=== PATIENT | male | born 1945 | race Caucasian/White ===

== ENCOUNTER → 2023-08-18 10:55 | Outpatient (REF) | payer MEDICARE, OTHER, SELFPAY | LOC: RAD 10:55 | PROVIDERS: ATTENDING PHYSICIAN Nurse Practitioner Adult Health | DX: C61 Malignant neoplasm of prostate (principal) | CPT/HCPCS: 71260; 74177; Q9967 ==

== ENCOUNTER → 2023-09-21 07:42 | Outpatient (REF) | payer MEDICARE, OTHER, SELFPAY | LOC: PAVMRI 07:42 | PROVIDERS: ATTENDING PHYSICIAN Internal Medicine Hematology & Oncology; FAMILY PHYSICIAN Nurse Practitioner Family | DX: C61 Malignant neoplasm of prostate (principal) | CPT/HCPCS: 72157; A9575 ==

== ENCOUNTER → 2023-09-27 08:27 | Outpatient (REF) | payer MEDICARE, OTHER, SELFPAY | LOC: RAD 08:27 | PROVIDERS: ATTENDING PHYSICIAN Internal Medicine Hematology & Oncology; FAMILY PHYSICIAN Nurse Practitioner Family | DX: C61 Malignant neoplasm of prostate (principal) | CPT/HCPCS: 78306; A9503 ==

== ENCOUNTER → 2024-07-12 15:22 | Outpatient (REF) | payer MEDICARE, OTHER, SELFPAY | LOC: CLAB 15:22 | PROVIDERS: ATTENDING PHYSICIAN Specialist | DX: N39.0 Urinary tract infection, site not specified (principal); R31.0 Gross hematuria | CPT/HCPCS: 87086; 88112 ==

== ENCOUNTER 2024-08-22 17:27 | Inpatient (IN) | payer MEDICARE, OTHER, SELFPAY ==
[2024-08-22] VITALS (9 sets, daily range): BP systolic 114–136; BP diastolic 66–100
[2024-08-22 14:06] LABS: % Basophils 0.6 % (0-2); % Eosinophils 1.4 % (0-6); % Immature Granulocytes 0.6 % (0-0.5); % Lymphocytes 24.9 % (20.5-51.1); % Monocytes 12.7 % (1.7-9.3); % Neutrophils 59.8 % (42.2-75.2); Absolute Eosinophils 0.1 10^3/uL (0-0.7); Absolute Lymphocytes 1.3 10^3/uL (1.2-3.4); Absolute Monocytes 0.6 10^3/uL (0.1-0.6); Hematocrit 44.2 % (39.0-52.0); Hemoglobin 14.9 g/dL (13.0-18.0); Mean Corp Hgb Conc. 33.7 g/dL (33.0-37.0); Mean Corpuscular Volume 92.1 fL (80.0-94.0); Mean Platelet Volume 11.3 fL (7.4-10.4); Nucleated Red Blood Cells % 0 % (-); Platelet Count 188 10^3/uL (130-400); Red Cell Dist. Width 13.1 % (11.5-14.5)
[2024-08-22 14:20] LABS: ALT (SGPT) 130 U/L (0-50); AST (SGOT) 91 U/L (17-59); Albumin 4.8 g/dl (3.5-5.0); Alkaline Phosphatase 137 U/L (38-126); Blood Urea Nitrogen 25 mg/dl (9-20); Calcium 9.7 mg/dl (8.4-10.2); Carbon Dioxide 26 mmol/L (22-30); Chloride 101 mmol/L (98-107); Glucose 109 mg/dl (70-99); Potassium 4.8 mmol/L (3.5-5.1); Sodium 140 mmol/L (135-145); Total Bilirubin 0.8 mg/dl (0.2-1.3); Total Protein 7.6 g/dl (6.3-8.2); eGFR > 60.00
[2024-08-22 14:48] LABS: Urine Albumin 1+ (Neg - Trace); Urine Bilirubin Negative (Negative); Urine Character Clear (Clear); Urine Color Yellow; Urine Glucose Negative (Negative); Urine Ketone Negative (Negative); Urine Leukocyte 3+ (Negative); Urine Nitrite Negative (Negative); Urine Occult Blood 2+ (Negative); Urine Specific Gravity 1.015 (<1.030); Urine Urobilinogen Negative (Neg - 1+)
[2024-08-22 15:02] LABS: Lipase 172 U/L (23-300)
[2024-08-22 15:15] LABS: Troponin I < 0.012 ng/ml
[2024-08-22 15:19] LABS: Urine Amorphous Seen; Urine Squamous Cell 0-2 /LPF (Few); Urine White Cell 40-50 /HPF (0-5)
[2024-08-22 15:20] LABS: Urine Red Blood Cell 16-20 /HPF (0-2)
--- NOTE | 2024-08-22 15:33 | ED.GENMED ---
History of Present Illness
General
Chief Complaint: Flank Pain
Source: patient
Time Seen by Provider: 08/22/24 14:21
History of Present Illness
History of Present Illness:
79-year-old male with past medical history of hypertension, hyperlipidemia, previous UT, previous prostate cancer presenting to the emergency department for evaluation of left-sided flank pain that has been ongoing for the last week, waxes and wanes
in intensity, currently 2 out of 10 described to be a dull ache but intermittently sharper in nature. Patient saw his primary care provider last week who diagnosed him with a urinary tract infection and placed the patient on an antibiotic (patient
unsure as to what antibiotic he completed) but states this did not give him any relief from his symptoms. He denies any other symptoms including fevers, chills, rigors, nausea, vomiting, bowel changes, urinary frequency/urgency, dysuria or
hematuria. He does note a history of radiation induced bleeding in the past from his prostate cancer treatments. No other concerns presently.
Past History
Past History
ED Past Medical History: Cancer, HTN, Hypercholesterolemia and UT
ED Past Surgical History: Cardiac, Tonsilectomy and Other
Social History
Tobacco: Non-smoker
Alcohol: None
Drug: None
Personal:
Living: with family
Review of Systems
Review of Systems
All Other Systems: ROS reviewed and negative except as documented in HPI and ROS
Phy Exam
Physical Exam
Physical Exam:
GENERAL: Alert , in no apparent distress
HEAD: NCAT
EYE: clear conjunctiva
NECK: Supple
ENT: o/p clr, mmm.
CARDIAC: Regular rate and rhythm .
LUNGS: Clear breath sounds bilaterally, no acute respiratory distress, no wheezes/rales/rhonchi
ABDOMEN: Soft, without focal tenderness, no r/g, mild left CVAT
NEUROLOGICAL: Alert and oriented
SKIN: Warm and dry, skin intact. no rash
MUSCULOSKELETAL: No edema, well perfused.
PSYCH: Normal and appropriate interaction.
Scores
Heart Failure Risk
Heart Failure Risk Score: Not Applicable
Heart Score for Chest Pain Patients
STEMI patient?: Not applicable
Withdrawal Assessment of Alcohol
Withdrawal Assessment Completed?: Not applicable
Course
Orders/Labs/Results
Orders:
Orders
08/22/24 13:47
Complete Blood Count/With Diff Urgent
Comprehensive Metabolic Panel Urgent
Urinalysis Reflex To Culture Urgent
Date Specimen was Collected: 08/22/24
Time Specimen was Collected: 13:40
Urine Microscopic Reflex Cult Urgent
Urine Culture Urgent
NEAL Source: U
Specimen Description:
Date Specimen was Collected: 08/22/24
Time Specimen was Collected: 13:40
08/22/24 14:31
Electrocardiogram (*1) Urgent
Reason for Study: Abdominal Pain
EKG- Treatment ONCE
08/22/24 14:33
CT Abd/pel Without Iv Or Oral Urgent
Comment:
Reason For Exam: left flank pain
08/22/24 14:42
GGTP Urgent
Comment: ADD ON
Lipase Urgent
Troponin I Urgent
08/22/24 16:37
CefTRIAXone [Rocephin] 1,000 mg IV NOW STA
08/22/24 17:09
Morphine Sulfate 2 mg IV NOW STA
08/22/24 17:10
Add On- LAB Routine
Tests Added?: GGT
08/22/24 17:14
Admit/Transfer Patient As Directed
Co-Sign Provider:
Level of Care: Inpatient admission
Assign to:: Medical/Surgical
Physician / Group: Titi
Diagnosis: nephrolithiasis
Reason for Hospitalization: obstructive nephrolithiasis
Expected length of stay greater than two midnights?: Yes
ELOS- Estimated Length of Stay in days: 2
I certify the patient meets the requirements for IP care: Yes
PRN Pain Medication Management As Directed
May give lesser potent ordered pain med per pt: Yes
preference::
Protocol:: Medication orders for pain may be administered in a
manner that supports deferring to patient preference
when the pt is:
- Requesting an ordered lesser potent pain medication.
Least to most potent pain medications are defined
as: acetaminophen < NSAID < tramadol < opioids
(morphine, oxycodone, hydromorphone).
- Requesting a lesser dose of the same medication IF
ORDERED.
- Requesting a less intrusive route of administration
if both routes are prescribed by the provider (PO <
IV).
08/22/24 17:15
Code Status As Directed
Resuscitation Status: Full Code
08/22/24 17:19
UROLOGY CONSULT Routine
Consulting Provider: Dixon Maxwell
Was physician already notified: Yes
Comment: nephrolithiasis
Abnormal Lab Results
08/22/24 08/22/24
13:47 14:42
MPV 11.3 H fL
(7.4-10.4)
Immature Gran % 0.6 H %
(0-0.5)
Monocytes % 12.7 H %
(1.7-9.3)
BUN 25 H mg/dl
(9-20)
Glucose 109 H mg/dl
(70-99)
GGT 87 H U/L
(15-73)
AST 91 H U/L
(17-59)
ALT 130 H U/L
(0-50)
Alkaline Phosphatase 137 H U/L
(38-126)
Ur Occult Blood Reflex 2+ A
(Negative)
Leukocyte Esterase Rfl 3+ A
(Negative)
Urine RBC 16-20 A /HPF
(0-2)
Urine WBC (Reflex) 40-50 A /HPF
(0-5)
Urine Albumin (Reflex) 1+ A
(Neg - Trace)
08/22/24 13:47
08/22/24 13:47
Vital Signs
Initial and Last Documented VS:
Initial Vital Signs
Temp Pulse Resp Pulse Ox
98.6 F 75 18 99
08/22/24 13:35 08/22/24 13:35 08/22/24 13:35 08/22/24 13:35
Last Documented Vital Signs
Temp Pulse Resp Pulse Ox
98.6 F 75 18 99
08/22/24 13:35 08/22/24 13:35 08/22/24 13:35 08/22/24 13:35
MDM/Problems Addressed
Differential Diagnosis Includes:
renal/ureteral colic, cystitis, pyelonephritis, infected kidney stone, muscular pain, atypical ACS
MDM/Problems Addressed:
79-year-old male presenting to the ER for evaluation of left-sided flank pain ongoing for the last week. Patient seen by primary care provider and was given a antibiotic for possible urinary tract infection but he reports no resolution of symptoms.
Pain currently tolerable and he is declining anything for pain. Will obtain labs, urine and CT imaging. Reassessment following.
*Radiology
Radiology exam reviewed: radiology read reviewed
*Pulse Oximetry
Patient hypoxic: no
*Critical Care Note
Total Time (30-74mins, 75-104mins- exclusive of procedures): Not Applicable
Data Reviewed
Review of Other/Old Records Reveals: Records and Radiology Studies
Patient Management
Discussion with other providers: Hospitalist and Medical Coordinator Pesticide Use
Escalation/DeEscalation of care consider admission/obs:
Patient has a large 9 x 5 mm proximal left ureteral stone with hydroureteronephrosis. His urinalysis does also show 3+ leukocytes and 40-50 WBCs concerning for kidney stone. Given he has already completed a course of antibiotics as well as having
continued pain I did discuss the case with urology who would like to take patient this evening for stenting. Patient to remain NPO. I did order a dose of Rocephin IV. Hospitalist team is aware and accepts for continued evaluation and treatment.
Patient did start to note some increased pain while he was waiting during the workup. 2 mg of morphine IV ordered.
ED Attending Note
-
Portions of this chart may have been created with voice recognition software.� Occasional wrong word or��sound alike� substitutions may have occurred due to the inherent limitations of voice recognition software.
Discharge Plan
Departure
Patient Disposition: Admit
Date of Disposition: 08/22/24
Time of Disposition: 16:38
Presentation/result/management discussed w/ accepting MD/DO: Hospitalist
Discharge Problem:
Ureterolithiasis, Acute UTI
Interventions
Interventions:
*Risk Screen - Suicide Last Done: 08/22/24 13:35
*General Assessment Last Done: 08/22/24 13:35
*Neglect/Abuse Screening Last Done: 08/22/24 13:35
*ED COVID-19 Vaccine History Last Done: 08/22/24 13:35
ZN-Rfmows-Bcgtkzsntd Assessment Last Done: 08/22/24 14:46
[2024-08-22] MEDS: ROCEPHIN 1000 MG IV (16:49)
--- NOTE | 2024-08-22 17:21 | HPS.HSE ---
Family Physician
-
Family Physician: Ryan Tim
Chief Complaint
-
L flank pain
History of Present Illness
79yo M with PMHx of Sturge-Bunn, presbycusis, L TALAT, prostate CA s/p RT, chemo, CAD s/p [place] and PCI 2 years ago, HLD started to have L flank pain a wek ago, PCP started him on Abx, initially pain subsided, but then returned. Patient denied fever,
chills. In ED CT showed 9x5mm stone in proximal L ureter. Outpatient urologist - .
Medical History
Past Medical History
Past Medical History: Reports Other
Additional Past Medical History:
see HPI
Past Surgical History: Reports Other
Additional Past Surgical History:
See HPI
Social History
Tobacco: Non-smoker
Alcohol: Occasional
Drug: None
Family History
Family History: Not pertinent
Allergies / Home Medications
Allergies reflects when Allergies were last updated in [facility].
Home Medications with original date entered in [facility]
Allergy/Medication List:
Allergies
Allergy/AdvReac Type Severity Reaction Status Date / Time
gluten Allergy Nausea Verified 08/22/24 13:36
prednisone Allergy Rash Verified 08/22/24 13:36
Home Medications
atorvastatin 80 mg tablet (Lipitor) 80 mg PO QPM 08/22/24
clopidogrel 75 mg tablet (Plavix) 75 mg PO DAILY 08/22/24
Review of Systems
-
History Source: Patient
A 12 point ROS was completed and negative except as noted: Yes
: Reports See HPI
Physical Exam
Vital Signs
Vital Signs
Temp Pulse Resp Pulse Ox
98.6 F 75 18 99
08/22/24 13:35 08/22/24 13:35 08/22/24 13:35 08/22/24 13:35
Physical Exam
General: Well Developed, Well Nourished and No Apparent Distress
HEENT: Anicteric, Moist mucous membranes and [place] Conjunctivae
Respiratory: Clear; No Wheezes or Crackles
Cardiac: S1/S2 and Regular Rhythm; No Murmur
GI: Soft, Non Tender and Non Distended
Genito-urinary: Clear Urine and Costovertebral angle tend (L)
Musculoskeletal: No Clubbing, No Cyanosis and No Edema
Skin: Warm and Other (L face hemangioma)
Neuro: Awake, Alert, Oriented and AO x 3
Psych: Calm
Laboratory Results
-
08/22/24 13:47
08/22/24 13:47
Laboratory Results
Total Bilirubin 0.8 mg/dl (0.2-1.3) 08/22/24 13:47
AST 91 U/L (17-59) H 08/22/24 13:47
ALT 130 U/L (0-50) H 08/22/24 13:47
Alkaline Phosphatase 137 U/L (38-126) H 08/22/24 13:47
Troponin I < 0.012 ng/ml 08/22/24 14:42
Lipase 172 U/L (23-300) 08/22/24 14:42
Data Reviewed
-
CT Scan: Report Reviewed by me
Lab Data: Labs Reviewed by me
Impression/Plan
-
A/P:
#L ureteral nephrolithiasis
with mild L renal collecting system dilation
Pain mgmt
IVF
Tamsulosin
Urology tentatively for stone extraction - keeping patient NPO
FOllow Ucx and cont ceftriaxone
#transaminitis
#Alk.phos elevation
no RUQ pain
liver without abnormality on CT (non-contrast)
Follow LFT
patient denied use of Tylenol
Alcohol - 1 glass of wine every other day
If persistent - outpatient US and GI
check GGT - Alk.phos can be 2/2 prostate CA involving bones
#T11 pathologic compression Fx
stable
#Small R renal cyst
#Stable Bosniak II L renal cyst
outpatient Urology to continue following
#Diverticulosis without diverticulitis
High fiber diet
#CAD, stable
#HLD
cont home meds
DVT ppx hep
FUll code
I have spent at least 75min reviewing chart, test results, communication with consultants and providing direct patient care
[2024-08-22] MEDS: MORPHINE SULFATE 2 MG IV (17:24)
[2024-08-22 17:41] LABS: GGTP 87 U/L (15-73)
--- NOTE | 2024-08-22 19:12 | W.PN.URO.CBU ---
Today's Communication / Plan
-
to op room
Assessment / Plan
-
ledft lg uretal stone in pt with compromised trigone s/p xrt will arttempt to navigate left uretr and stent possiby remove stone may however need per c tube
Diagnosis
-
Date of Service: August 22, 2024
-
Patient Diagnosis:left 9 mm stone with obstruction prox left ureter and h/o xrt to prostate. 1 week colic
Post Op Day:
Subjective
-
colic no fevr chils
Objective
-
Vital Signs
Temp Pulse Resp Pulse Ox
98.6 F 75 18 99
08/22/24 13:35 08/22/24 13:35 08/22/24 13:35 08/22/24 13:35
Laboratory Results
08/22/24 13:47
08/22/24 13:47
Review of Systems
-
: Flank Pain and Dark Urine
Physical Exam
-
General - well developed, well nourished, no acute distress
Chest - clear bilaterally
Abdomen - soft, non-tender, positive bowel sounds, no CVAT, no incisional pain or distention
Genitalia - normal
Rectal - normal
Skin - warm & dry with no rash
Neuro - AOx3, no motor deficits
Extremities - no clubbing, no cyanosis, no edema
Incision - clean, dry
Dressing - clean, dry, intact
Care Review
Data Reviewed
Discussed with: Hospitalist and Nursing
CT Scan: Image Pers Reviewed
--- NOTE | 2024-08-22 20:23 | W.SUR.POST ---
Surgical Immediate Post Op
Note
left uretral stone with obstrctionPre Op Diagnosis:
Post Op Diagnosis: same
Procedure Performed: left ureteroscopy laser basket extraction stent
Primary Surgeon:
flashner
Secondary Surgeons:
Anesthesia:dr samuels general
Estimated Blood Loss: 2
Fluids: nss
Drains/Shunts: 6 fr 24 cm jj stent on left
Specimens/Cultures: stone
Doppler/Duplex/Angio (Y/N):
Complications:0
Operative Findings: left uretral stone 9 mm lasered removed stented
[2024-08-22] MEDS: NSS 1000 IV (22:11)
[2024-08-22] MEDS: LIPITOR 80 MG PO (22:11)
[2024-08-23 01:15] VITALS: BP 129/69
[2024-08-23 02:15] VITALS: BP 144/74
[2024-08-23] MEDS: TYLENOL 650 MG PO (02:22)
[2024-08-23 06:08] VITALS: BP 128/78
[2024-08-23 07:17] LABS: Hematocrit 40.2 % (39.0-52.0); Hemoglobin 13.7 g/dL (13.0-18.0); Mean Corp Hgb Conc. 34.1 g/dL (33.0-37.0); Mean Platelet Volume 11.5 fL (7.4-10.4); Platelet Count 169 10^3/uL (130-400); Red Blood Cell Count 4.42 10^6/uL (4.70-6.10); Red Cell Dist. Width 13.1 % (11.5-14.5); White Blood Cell Count 8.2 10^3/uL (4.8-10.8)
[2024-08-23 07:23] LABS: ALT (SGPT) 99 U/L (0-50); AST (SGOT) 63 U/L (17-59); Albumin 3.9 g/dl (3.5-5.0); Alkaline Phosphatase 131 U/L (38-126); Blood Urea Nitrogen 21 mg/dl (9-20); Calcium 8.7 mg/dl (8.4-10.2); Carbon Dioxide 22 mmol/L (22-30); Chloride 105 mmol/L (98-107); Glucose 137 mg/dl (70-99); Potassium 4.6 mmol/L (3.5-5.1); Sodium 138 mmol/L (135-145); Total Bilirubin 0.8 mg/dl (0.2-1.3); Total Protein 6.3 g/dl (6.3-8.2); eGFR > 60.00
[2024-08-23 08:07] VITALS: BP 133/71
[2024-08-23] MEDS: FLOMAX 0.4 MG PO (08:30)
[2024-08-23] MEDS: PLAVIX 75 MG PO (08:30)
--- NOTE | 2024-08-23 09:00 | W.PN.URO.CBU ---
Today's Communication / Plan
-
plan per hospaitalist
Assessment / Plan
-
s/p laser stent had fever last pm once stable perhaps later toda if afebrile home on po abs and set up outpatient stent removal
Diagnosis
-
Date of Service: August 23, 2024
-
Patient Diagnosis:
Post Op Day:
Patient Diagnosis:left 9 mm stone with obstruction prox left ureter and h/o xrt to prostate. 1 week colic
Post Op Day: 1 s/p successful laser and extraction with stenting
Subjective
-
feels well
Objective
-
Vital Signs
Temp Pulse Resp BP Pulse Ox
98.3 F 70 18 133/71 96
08/23/24 08:07 08/23/24 08:07 08/23/24 08:07 08/23/24 08:07 08/23/24 08:07
Intake and Output
08/22/24 08/23/24 08/24/24
06:59 06:59 06:59
Intake Total 960 / 960
Output Total 425 / 425
Balance 535 / 535
Intake:
Oral fluids 960 / 960
Output:
Urine, Voided 425 / 425
Laboratory Results
08/23/24 06:33
08/23/24 06:33
Review of Systems
-
: Frequency
Physical Exam
-
General - well developed, well nourished, no acute distress
Chest - clear bilaterally
Abdomen - soft, non-tender, positive bowel sounds, no CVAT, no incisional pain or distention
Genitalia - normal
Rectal - normal
Skin - warm & dry with no rash
Neuro - AOx3, no motor deficits
Extremities - no clubbing, no cyanosis, no edema
Incision - clean, dry
Dressing - clean, dry, intact
Care Review
Data Reviewed
Discussed with: Hospitalist and Nursing
CT Scan: Image Pers Reviewed
--- NOTE | 2024-08-23 09:25 | W.PN.HOSP.TC ---
Today's Communication/Plan
-
pending Ucx result and then DC
stop IVF
Assessment / Plan
Assessment / Plan
79yo M with PMHx of urge-Bunn, presbycusis, L TALAT, prostate CA s/p RT, chemo, CAD s/p [place] and PCI 2 years ago, HLD started to have L flank pain a wek ago, PCP started him on Abx, initially pain subsided, but then returned. Patient denied fever,
chills. In ED CT showed 9x5mm stone in proximal L ureter. S/P laser extraction and JJ stent by urology on 08/22/24
A/P
#L ureteral nephrolithiasis
with mild L renal collecting system dilation
Pain mgmt
Tamsulosin
Urology s/p nephrectomy and JJ stent
FOllow Ucx and cont ceftriaxone
#transaminitis
#Alk.phos elevation
no RUQ pain
liver without abnormality on CT (non-contrast)
LFT improving
patient denied use of Tylenol
Alcohol - 1 glass of wine every other day
outpatient US and GI
minimal GGT elevation
#T11 pathologic compression Fx
stable
#Small R renal cyst
#Stable Bosniak II L renal cyst
outpatient Urology to continue following
#Diverticulosis without diverticulitis
High fiber diet
#CAD, stable
#HLD
cont home meds
DVT ppx hep
FUll code
I have spent at least 35min reviewing chart, test results, communication with consultants and providing direct patient care
Anticipated Discharge: Within 24 hours
Subjective/Interval History
-
Date of Service: August 23, 2024
Objective Data
-
Labs:
Laboratory Results
08/23/24
06:33
WBC 8.2
Hgb 13.7
Hct 40.2
Plt Count 169
Sodium 138
Potassium 4.6
Chloride 105
Carbon Dioxide 22
BUN 21 H
Creatinine 1.0
Glucose 137 H
Calcium 8.7
Total Bilirubin 0.8
AST 63 H
ALT 99 H
Alkaline Phosphatase 131 H
Vital Signs:
Vital Signs
Temp Pulse Resp BP Pulse Ox
98.3 F 70 18 133/71 96
08/23/24 08:07 08/23/24 08:07 08/23/24 08:07 08/23/24 08:07 08/23/24 08:07
I&O
08/22/24 08/23/24 08/24/24
06:59 06:59 06:59
Intake Total 960 / 960
Output Total 425 / 425
Balance 535 / 535
Review of Systems
-
History Source: Patient
All other systems: Reviewed and negative
Physical Exam
-
General: No Apparent Distress
Neuro: Awake, Alert, Oriented and AO x 3
Psych: Calm
[2024-08-23 10:02] LABS: % Basophils 0.2 % (0-2); % Eosinophils 0.1 % (0-6); % Immature Granulocytes 0.6 % (0-0.5); % Monocytes 6.3 % (1.7-9.3); % Neutrophils 88.8 % (42.2-75.2); Absolute Immature Granulocytes 0.1 10^3/uL (0-0.05); Absolute Lymphocytes 0.3 10^3/uL (1.2-3.4); Absolute Monocytes 0.5 10^3/uL (0.1-0.6); Absolute Neutrophils 7.3 10^3/uL (1.4-6.5); Nucleated Red Blood Cells % 0 % (-)
[2024-08-23 11:40] VITALS: BP 104/55
--- NOTE | 2024-08-23 12:11 | W.DCSUMMARY ---
Discharge Summary
Discharge Data
Date of Admission: 08/22/24
Date of Discharge: 08/23/24
-
Pending Results: No
Hospital Course
79yo M with PMHx of Sturge-Bunn, presbycusis, L TALAT, prostate CA s/p RT, chemo, CAD s/p UT and PCI 2 years ago, HLD started to have L flank pain a wek ago, PCP started him on Abx, initially pain subsided, but then returned. Patient denied fever,
chills. In ED CT showed 9x5mm stone in proximal L ureter. S/P laser extraction and JJ stent by urology on 08/22/24. Ucx resulted neg so patient switched to oral levaquin as QTc not prolonged. Outpatient GI recommended. Medically stable for d/c home
I have spent at least 35min reviewing chart, test results, communication with consultants and providing direct patient care
Patient was managed for:
#L ureteral nephrolithiasis
#transaminitis
#Alk.phos elevation
#T11 pathologic compression Fx
#Small R renal cyst
#Stable Bosniak II L renal cyst
#Diverticulosis without diverticulitis
#CAD, stable
#HLD
Discharge Plan
-
Patient Disposition: Home (Routine Discharge)
Discharge Diagnosis/Procedures: Nephrolithiasis
Diet: Regular
Referrals:
Dixon Maxwell MD [Active] - (you have a stent Expect left renal discomfort on voiding and blood in urine and frequency urgency and pressure on voiding Call Dr Maxwell [phone] to set up stent removal)
Ryan Tim PA-C [Family Provider] -
Prescriptions:
New
levofloxacin 750 mg tablet
750 mg PO DAILY Qty: 6 0RF
Continued
atorvastatin [Lipitor] 80 mg Tablet
80 mg PO QPM
clopidogrel [Plavix] 75 mg Tablet
75 mg PO DAILY
Discharge Orders:
Discharge Patient (As Directed); Ordered 08/23/24
Ordered By: Albert Walls
Discharge Date and Time
Print Language: GERMAN
[2024-08-23] MEDS: LEVAQUIN 750 MG PO (13:56)
--- NOTE | 2024-08-23 14:25 | CM ---
Met with patient to obtain information for assessment. Patient stated that he lives in an in law suite attached to his daughter and son's in law's house. His two grandchildren reside with them as well. Patient described himself as independent with
his ADLs, personal care, dressing and bathing. 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 He can drive and can get to all of his appointments and do his own shopping. Patient stated that he has had VN years ago and believes that it was
[place]. He has never been to a SNF.
Patient has a prescription plan and uses, [facility] for all of his medications.
His PCP is, Israel Godinez.
Patient stated that he feels that he is at baseline level of functioning and is anxious to return home. He confirmed that he has a ride. Patient signed IMM, it was reviewed and now on chart.
Plan: Case management will continue to follow and assist with discharge planning. Home when cleared.
[2024-08-23 14:44] VITALS: BMI 21.1
[2024-08-23 15:38] VITALS: BP 133/58
== END 2024-08-23 16:01 | disposition home or self-care (01) | DRG 661 ==
LOC: 4 EAST ACU 17:27
PROVIDERS: Emergency Medicine; Physician Assistant Medical; ADMITTING PHYSICIAN Internal Medicine; CONSULT PHYSICIAN Specialist; EMERGENCY PHYSICIAN Emergency Medicine; FAMILY PHYSICIAN Physician Assistant Medical
PROC: 0TC78ZZ Extirpation of Matter from Left Ureter, Via Natural or Artificial Opening Endoscopic (ICD-10-PCS; 2024-08-22)
PROC: 0T778DZ Dilation of Left Ureter with Intraluminal Device, Via Natural or Artificial Opening Endoscopic (ICD-10-PCS; 2024-08-22)
DX: N20.2 Calculus of kidney with calculus of ureter (principal); K57.30 Diverticulosis of large intestine without perforation or abscess without bleeding; I25.10 Atherosclerotic heart disease of native coronary artery without angina pectoris; E78.00 Pure hypercholesterolemia, unspecified; N28.1 Cyst of kidney, acquired; Z85.46 Personal history of malignant neoplasm of prostate; Z92.3 Personal history of irradiation
CPT/HCPCS: 74018; 74176; 76000; 80053; 81003; 81015; 82365; 82977; 83690; 84484; 85025; 87086; 93005; 96374; 99285; A4300; C1894; C2617